=== PATIENT | female | born 1965 | race Caucasian/White ===

== ENCOUNTER 2019-07-30 02:43 | Emergency (ER) | payer BC, OTHER ==
[2019-07-30] MEDS ORDERED: Nitrofurantoin Monohydrate/Macrocrystalline 100 MG Cap PO ONE (03:13)
--- NOTE | 2019-07-30 03:13 | EDM.PDOC ---
ED HPI GENERAL MEDICAL PROBLEM - General Chief Complaint: Genitourinary Problem Stated Complaint: UTI Time Seen by Provider: 07/30/19 03:05 Source of Information: Reports: Patient, RN, RN Notes Reviewed History Limitations: Reports: No Limitations - History of Present Illness INITIAL COMMENTS - FREE TEXT/NARRATIVE: patient presents to ER with complaint of blood in the urine. States she began having frequency urgency and burning with urination about 4:00 on Wednesday. Patient admits to chills, denies fevers, nausea or vomiting. Admits to low back pain. Patient states she noted clotting in the urine. Onset: Today, Sudden - Related Data Allergies Allergy/AdvReac Type Severity Reaction Status Date / Time amoxicillin [From Augmentin] Allergy Diarrhea Verified 07/30/19 02:54 clavulanic acid Allergy Diarrhea Verified 07/30/19 02:54 [From Augmentin] Home Meds: Home Meds Lisinopril 2.5 mg PO DAILY 07/30/19 [History] Past Medical History Cardiovascular History: Reports: Hypertension HEALTH LEAD History: Reports: Oncologic (Cancer) History: Reports: Breast - Past Surgical History Oncologic Surgical History: Reports: Mastectomy Other Oncologic Surgeries/Procedures: L breast Social & Family History - Family History Family Medical History: Noncontributory - Tobacco Use Smoking Status *Q: Never Smoker Second Hand Smoke Exposure: No - Caffeine Use Caffeine Use: Reports: Coffee - Recreational Drug Use Recreational Drug Use: No ED ROS GENERAL - Review of Systems Review Of Systems: ROS reveals no pertinent complaints other than HPI. ED EXAM, RENAL/ - Physical Exam Exam: See Below Exam Limited By: No Limitations General Appearance: Alert, WD/WN, No Apparent Distress Eye Exam: Bilateral Eye: EOMI, Normal Inspection Ears: Normal External Exam, Hearing Grossly Normal Nose: Normal Inspection Throat/Mouth: Normal Inspection, Normal Voice, No Airway Compromise Head: Atraumatic, Normocephalic Neck: Normal Inspection, Supple, Non-Tender, Full Range of Motion Respiratory/Chest: No Respiratory Distress, Lungs Clear, Normal Breath Sounds, No Accessory Muscle Use, Chest Non-Tender Cardiovascular: Normal Peripheral Pulses, Regular Rate, Rhythm, No Edema, No Gallop, No JVD, No Murmur, No Rub GI/Abdominal: Normal Bowel Sounds, Soft, Tender (RLQ, LLQ) (Female) Exam: Deferred Rectal (Female) Exam: Deferred Back Exam: Normal Inspection, Full Range of Motion. No: CVA Tenderness (L), CVA Tenderness (R) Extremities: Normal Inspection, Normal Range of Motion, Non-Tender, Normal Capillary Refill, No Pedal Edema Neurological: Alert, Oriented, CN II-XII Intact, Normal Cognition, Normal Gait, Normal Reflexes, No Motor/Sensory Deficits Psychiatric: Normal Affect, Normal Mood Skin Exam: Warm, Dry, Intact, Normal Color, No Rash Lymphatic: No Adenopathy Course - Vital Signs Last Recorded V/S: Last Vital Signs Temp 98.6 F 07/30/19 02:48 Pulse 89 07/30/19 03:34 Resp 18 07/30/19 03:34 BP 137/87 07/30/19 03:34 Pulse Ox 100 07/30/19 03:34 - Orders/Labs/Meds Orders: Active Orders 24 hr Category Date Time Status CULTURE URINE [RM] Stat Lab 07/30/19 02:47 Received Labs: Laboratory Tests 07/30/19 Range/Units 02:47 Urine Color Yellow (YELLOW) Urine Appearance Cloudy (CLEAR) Urine pH 7.0 (5.0-9.0) Ur Specific [place] 1.015 (1.005-1.030) Urine Protein 100 H (NEGATIVE) Urine Glucose (UA) Negative (NEGATIVE) Urine Ketones Negative (NEGATIVE) Urine Occult Blood Large H (NEGATIVE) Urine Nitrite Negative (NEGATIVE) Urine Bilirubin Negative (NEGATIVE) Urine Urobilinogen 0.2 (0.2-1.0) mg/dL Ur Leukocyte Esterase Moderate H (NEGATIVE) Urine RBC 50-75 H /HPF Urine WBC Packed H (0-5/HPF) /HPF Ur Epithelial Cells Few (NOT SEEN) /HPF Urine Bacteria Many H (0-FEW/HPF) /HPF Meds: Medications Discontinued Medications Generic Name Dose Route Start Last Admin Trade Name Freq PRN Reason Stop Dose Admin Nitrofurantoin Macrocrystals 100 mg 07/30/19 03:13 07/30/19 03:19 Macrobid PO 07/30/19 03:14 100 mg ONETIME ONE Administration Departure - Departure Time of Disposition: 03:13 Disposition: Home, Self-Care 01 Condition: Fair Clinical Impression: UTI, Urinary tract infectious disease - Discharge Information *PRESCRIPTION DRUG MONITORING PROGRAM REVIEWED*: No *COPY OF PRESCRIPTION DRUG MONITORING REPORT IN PATIENT JAQUI: No Instructions: Urinary Tract Infection, Adult, [id number] Forms: ED Department Discharge Additional Instructions: RX: Macrobid orally twice daily for 7 days Drink plenty of water, cranberry juice Follow up with your primary care facility if no improvement - My Orders Last 24 Hours: My Active Orders 07/30/19 02:47 CULTURE URINE [RM] Stat - Assessment/Plan Last 24 Hours: My Active Orders 07/30/19 02:47 CULTURE URINE [RM] Stat
== END 2019-07-30 03:25 | disposition home or self-care (01) ==
LOC: DL.ED 02:43
DX: N39.0 Urinary tract infection, site not specified (principal); I10 Essential (primary) hypertension; Z79.899 Other long term (current) drug therapy; Z88.0 Allergy status to penicillin; Z88.1 Allergy status to other antibiotic agents
CPT/HCPCS: 81001; 87086; 87088; 87186; 99283; A9270